=== PATIENT | female | born 1995 | race African-American/Black ===

== ENCOUNTER 2022-12-10 17:12 | Emergency (ER) | payer MEDICAID ==
[~2022-12-10] VITALS: Ht 172.7 cm; Wt 56.7 kg
[2022-12-10 17:20] VITALS: BP 116/70; TEMP 98; O2SAT 96
[2022-12-10] MEDS ORDERED: SILV20CR13 TP ×2 (17:46→18:25)
[2022-12-10] MEDS ORDERED: SILVER SULFADIAZINE CREAM 25 GM TUBE TP ONE (18:00)
[2022-12-10] MEDS ORDERED: SILVER SULFADIAZINE CREAM 25 GM TUBE ONE (18:26)
[2022-12-10] MEDS ORDERED: IBUP-1955 PO (18:36)
== END 2022-12-10 19:28 | disposition home or self-care (01) ==
LOC: ER 17:15
DX: T21.25XA Burn of second degree of buttock, initial encounter (principal); F41.9 Anxiety disorder, unspecified; X19.XXXA Contact with other heat and hot substances, initial encounter; Y93.89 Activity, other specified; Y92.89 Other specified places as the place of occurrence of the external cause; Y99.8 Other external cause status
CPT/HCPCS: 99283; 16020; A6403